=== PATIENT | male | born 1950 | race Caucasian/White ===

== ENCOUNTER → 2017-09-07 | Outpatient (REF) | payer MEDICARE | LOC: M SFHCCAPE 16:30 | PROVIDERS: ATTEND Physician Assistant | DX: R10.9 Unspecified abdominal pain (principal) ==

== ENCOUNTER → 2017-10-08 | Outpatient (REF) | payer MEDICARE | LOC: M SMT 13:10 | DX: N31.9 Neuromuscular dysfunction of bladder, unspecified (principal); R35.0 Frequency of micturition | CPT/HCPCS: 87086 ==